=== PATIENT | female | born 1995 | race Caucasian/White ===

== ENCOUNTER 2023-07-22 10:53 | Emergency (ER) | payer SELFPAY ==
[2023-07-22 10:54] VITALS: BP 128/71; PULSE 84; RESP 17; TEMP 36.3; O2SAT 99; BMI 34.4
--- NOTE | 2023-07-22 11:26 | CT_ITS ---
STUDY: CT ABDOMEN AND PELVIS WITHOUT CONTRAST REASON FOR EXAM: Female, 27 years old. Two-week history of right flank pain. RADIATION DOSAGE (If Supplied By Facility): CTDIvol = ( 12.33 ) mGy, DLP = ( 613.24 ) mGycm TECHNIQUE: Transaxial images were obtained from the dome of the diaphragm to the symphysis pubis without oral contrast, and without intravenous contrast. Sagittal and coronal images were reconstructed. Individualized dose optimization techniques were used for this CT. COMPARISON: None. FINDINGS: The visualized lung bases are unremarkable. The visualized portions of the heart are within normal limits. Normal liver. Normal gallbladder and extrahepatic biliary system. Normal spleen. Normal pancreas. Normal bilateral adrenal glands. There is a 3.7 mm nonobstructive calculus in the midpole calyx of the right kidney. A 3.5 mm nonobstructive calculus is seen in the posterior lower pole calyx of the right kidney. Mild degree of right hydronephrosis and right hydroureter due to a 3.5 mm calculus in the midportion of the right ureter. Mild degree of periureteric stranding. Normal left kidney. Normal visualized stomach. Normal small intestine. Moderate degree of fecal material is seen in the rectosigmoid colon. The appendix is visualized and appears normal. Normal abdominal aorta. Normal inferior vena cava. Normal retroperitoneum. Normal urinary bladder. Follicles are seen in both ovaries. Normal abdominal wall. Normal osseous structures. CT/Abdomen/Pelvis without Cont IMPRESSION: 3.5 mm calculus in the midportion of the right ureter causing right hydronephrosis and right hydroureter. Nonobstructive right intrarenal calculus. Electronically Signed: Freedom Bales MD at 12:44 EDT ,
[2023-07-22 11:34] LABS: Absolute Lymphocyte Count 1.41 X10^3/uL (0.83-4.51); Absolute Neutrophil Count 2.7 X10^3/uL (2.0-7.7); Basophil# 0.05 X10^3/uL; Basophil% 1.1 % (0-1); Eosinophil# 0.05 X10^3/uL; Eosinophils% 1.1 % (0-5); Hematocrit 42.1 % (37-47); Hemoglobin 13.2 g/dL (12.0-15.0); Lymphocyte # 1.41 X10^3/ul (0.83-4.51); Lymphocyte % 30.4 % (19-41); Mean Corp Hgb Conc 31.4 g/dL (32-36); Mean Corpuscular Hgb 27.6 pg (27.0-32.0); Mean Corpuscular Volume 88.1 fL (81-99); Mean Platelet Vol. 10.4 fl (6.2-12.0); Monocyte# 0.39 X10^3/uL; Monocyte% 8.4 % (0-10); NRBC Flagged by Analyzer 0 % (0-5); Neutrophil # 2.73 X10^3/uL (2.7-7.7); Neutrophil % 58.8 % (47-70); Platelet Count 326 K/mm3 (150-450); RBC Distribution Width CV 12.6 % (11.6-14.6); RBC Distribution Width SD 40.7 fl (35.1-43.9); Red Blood Count 4.78 M/mm3 (4.2-5.4); White Blood Count 4.6 K/mm3 (4.4-11.0)
[2023-07-22 11:40] LABS: Internal QC Validated? YES +Cl - CLEAR BKGD; Pregnancy, Serum, hCG Quali. NEGATIVE Negative
[2023-07-22 11:44] LABS: Anion Gap 6 (5-15); BUN 11 mg/dL (7-18); BUN/Creat Ratio 14.9 RATIO (10-20); Calcium,Total 9.3 mg/dL (8.5-10.1); Chloride 104 mmol/L (98-107); Creatinine, Serum 0.74 mg/dL (0.55-1.02); EST Glomerular Filtration Rate 100 mL/min (>60); Est Glom Filt Rate - Afr Amer 121 mL/min (>60); Estimated Creatinine Clearance 111.43 ml/min; Glucose 104 mg/dL (74-106); Potassium 4.1 mmol/L (3.5-5.1); Sodium Level 137 mmol/L (136-145)
[2023-07-22 11:59] LABS: Mucous, Urine 0 SEEN /hpf (<or=2+)
[2023-07-22 12:01] LABS: Color, Urine Yellow (Yellow); Glucose, Dipstick Normal (Normal); Ketone-Dipstick Negative (Negative); Leukocyte Esterase-Dipstick 100 /ul (Negative); Nitrite-Dipstick Negative (Negative); Occult Blood-Urine 150 /ul (Negative); Protein-Dipstick 15 mg/dl (Negative); Specific Gravity, Urine 1.005 (1.002-1.030); Urine Bilirubin Dipstick Negative (Negative); Urine Clarity Sl. Cloudy (Clear); Urine Urobilinogen Normal (Normal)
[2023-07-22 12:09] LABS: Bacteria 1+ /hpf (None Seen); Red Blood Cells-Urine 0-5 SEEN /hpf (0-5); Squamous Epithelial Cells - UA 5-10 SEEN /hpf (5-10); White Blood Cells 0-5 SEEN /hpf (0-5)
--- NOTE | 2023-07-22 12:40 | EX.ED.DYSGE1 ---
HPI History of Present Illness Chief Complaint: Flank Pain Informant: patient Narrative Narrative: Presents persistent pain right flank. History of kidney stones have always passed them. Last time a couple years ago. 2 weeks ago noted flank pain she went to [facility] with her history no imagings. She had labs and urine that was negative. She was placed on Flomax and ibuprofen. She did not start the Flomax. States noted this pain moving to the side and burning sensation down the lower she went to urgent care 4 days ago had a pelvic workup with density screening that she looked up and was negative. Urine still had blood. She denies dysuria. Today increasing pain however took 1 g of Tylenol prior to arrival which subsided the symptoms. Prior similar symptoms: Yes PFSH PFSH Home Medications ?Medication ?Instructions ?Recorded ?Last Taken ?Type NK 07/22/23 Unknown History ibuprofen 600 mg tablet 600 mg PO Q6H PRN PRN pain #20 07/22/23 Unknown Rx TABLETS ondansetron 4 mg disintegrating 4 mg PO Q8H PRN PRN Nausea #10 tabs 07/22/23 Unknown Rx tablet oxycodone-acetaminophen 5 mg-325 1 tab PO Q6H PRN PRN Pain 3 days 07/22/23 Unknown Rx mg tablet #12 TABLETS tamsulosin 0.4 mg capsule 0.4 mg PO DAILY #7 CAPSULES 07/22/23 Unknown Rx Allergy/AdvReac Type Severity Reaction Status Date / Time Penicillins (PCN) Allergy Intermediate Hives Verified 07/22/23 10:55 Social History Smoking Status: Never smoker ROS ROS ED Constitutional Constitutional ED: Denies chills, fever(s) or sweats Eyes Eyes: Denies change in vision ENT ENT ED: Denies dysphagia or sore throat Cardiovascular Cardiovascular: Denies chest pain, leg edema, palpitations or racing heartbeat Respiratory/Chest Respiratory/Chest: Denies cough, dyspnea or dyspnea on exertion Gastrointestinal Gastrointestinal: Reports abdominal pain; Denies diarrhea, nausea or vomiting Genitourinary Genitourinary ED: Denies dysuria, hematuria or urinary frequency Musculoskeletal Musculoskeletal: Reports back pain; Denies extremity pain or neck pain Integumentary Denies rash or wounds Neurologic Neurologic: Denies headache(s), paresthesias or weakness EXAM Physical Exam Const Vital Signs: 07/22/23 10:54 07/22/23 13:20 07/22/23 14:05 Temperature 97.3 F L 97.3 F L Temperature Source Temporal Pulse Rate 84 72 64 Respiratory Rate 17 14 14 Blood Pressure 128/71 H 125/81 H 121/67 H Blood Pressure Mean 90 95 85 Pulse Ox 99 99 99 Oxygen Delivery Method Room Air Positive well nourished and well developed General Appearance ED: well developed and NAD HEENT Reports moist mucous membranes normocephalic and atraumatic Eyes EOMs intact bilaterally and conjunctivae normal General Eye ED: Yes normal appearance of both eyes Neck no lymphadenopathy and supple General: Negative for tenderness Chest Wall Chest: Negative for tenderness Resp normal respiratory effort and normal air movement Effort and Inspection: symmetric chest movement; Negative for respiratory distress Cardio regular rate, regular rhythm and no murmurs Peripheral Pulses: pulses 2+ throughout GI normal to inspection, nondistended, normoactive bowel sounds and non-tender Palpation: Negative for guarding or rebound tenderness present Back/Spine no CVA tenderness and no thoracic nor lumbar tenderness Extremity normal to inspection General Extremety ED: Negative for edema or tenderness General Extremity: Negative for edema Neuro oriented x3 and no sensory deficits noted Sensorium / Orientation: awake and alert Skin no rashes or lesions noted and no wounds MDM MDM MDM Narrative Medical decision making narrative: Interventions / MDM: Differential diagnosis: Kidney stone, renal colic Diagnosis considered but do not suspect: N/A My EKG interpretation: N/A Imaging independently reviewed and interpreted by myself: CT abdomen pelvis: Obstructive right kidney stone 3.5 mm mid ureter with hydro-. External documents reviewed: N/A Test considered but not ordered:N/A ED course: Patient declines any pain medicines has on and off symptoms for the last 2 weeks with history of kidney stones. Will recheck labs urine CT scan will be ordered for further evaluation. Lab stable urine with only 100 leukocytes 1+ bacteria. Negative nitrites and white cells. Urine culture sent. She is asymptomatic. CT scan confirms an obstructive stone at 3.5 mm. Pain remained controlled without any additional medicines. Her prescription back home up in [place] of ibuprofen and Flomax. She is written for these medicines along with Zofran and Percocets to use as needed. She is given follow-up with your local urologist here, return precautions discussed. All questions were answered. Re-evaluation: stable Disposition discussed with patient/family/significant other: Patient Case discussed with consulting clinician: N/A This note was generated with [employer] dictation software. It may contain incorrect words, spelling, and punctuation that were not noted in checking the note before signing. Lab Data Attestation: I reviewed the patient's lab results. Labs: Laboratory Results - last 24 hr 07/22/23 07/22/23 11:10 11:55 WBC 4.6 RBC 4.78 Hgb 13.2 Hct 42.1 MCV 88.1 MCH 27.6 MCHC 31.4 L RDW Std Deviation 40.7 RDW Coeff of Elfego 12.6 Plt Count 326 MPV 10.4 Immature Gran % (Auto) 0.200 Neut % (Auto) 58.8 Lymph % (Auto) 30.4 [place] % (Auto) 8.4 Eos % (Auto) 1.1 Baso % (Auto) 1.1 H Absolute Neuts (auto) 2.7 Absolute Lymphs (auto) 1.41 Nucleated RBC % 0 Sodium 137 Potassium 4.1 Chloride 104 Carbon Dioxide 27.0 Anion Gap 6 BUN 11 Creatinine 0.74 Estim Creat Clear Calc 111.43 Est GFR (MDRD) Af Amer 121 Est GFR (MDRD) Non-Af 100 BUN/Creatinine Ratio 14.9 Glucose 104 Calcium 9.3 Serum , Qual NEGATIVE Urine Color Yellow Urine Clarity Sl. Cloudy Urine pH 7.0 Ur Specific [place] 1.005 Urine Protein 15 H Urine Glucose (UA) Normal Urine Ketones Negative Urine Occult Blood 150 H Urine Nitrite Negative Urine Bilirubin Negative Urine Urobilinogen Normal Ur Leukocyte Esterase 100 H Urine RBC 0-5 SEEN Urine WBC 0-5 SEEN Ur Squamous Epith Cells 5-10 SEEN Urine Bacteria 1+ Urine Mucus 0 SEEN Radiography Diagnostic Testing: Clinical Impression(s) from Imaging Studies Abdomen/Pelvis CT 07/22/23 11:26 IMPRESSION: 3.5 mm calculus in the midportion of the right ureter causing right hydronephrosis and right hydroureter. Nonobstructive right intrarenal calculus. Electronically Signed: Freedom Bales MD at 12:44 EDT , Discharge Plan Triage Chief Complaint: Flank Pain ED Provider: Robert Pineda Dx/Rx/DC Orders Clinical Impression: Urolithiasis, Renal colic on right side Instructions: ED Kidney Stone with Pain Prescriptions: New oxycodone-acetaminophen 5-325 mg tablet 1 tab PO Q6H PRN PRN (Reason: Pain) 3 Days Qty: 12 0RF tamsulosin 0.4 mg capsule 0.4 mg PO DAILY Qty: 7 0RF ibuprofen 600 mg tablet 600 mg PO Q6H PRN PRN (Reason: pain) Qty: 20 0RF ondansetron 4 mg tablet,disintegrating 4 mg PO Q8H PRN PRN (Reason: Nausea) Qty: 10 0RF No Action NK Primary Care Provider: Care Physician,No Primary Referrals: Eugene Sanchez MD [Med Staff - Active Staff] - 3-5 Days Care Physician,No Primary [Primary Care Provider] - Activity Restrictions/Additional Instructions: 3.5 mm stone mid right ureter. Blood work stable. Urine culture sent, you will be contacted if any positive finding that needs treatment. Take pain medicines and Flomax as prescribed. If you develop worsening symptoms fevers pain not controlled medications, return to the ED for reevaluation. Follow-up with Dr. Sanchez. Print Language: Honduran Disposition Disposition: Home, Self Care Discharge Date/Time: 07/22/23 14:06
[2023-07-22 13:20] VITALS: BP 125/81; PULSE 72; RESP 14; O2SAT 99
[2023-07-22 14:05] VITALS: BP 121/67; PULSE 64; RESP 14; TEMP 36.3; O2SAT 99
== END 2023-07-22 14:06 | disposition home or self-care (01) ==
PROVIDERS: Emergency Provider Emergency Medicine; Visit Provider Emergency Medicine
DX: N13.2 Hydronephrosis with renal and ureteral calculous obstruction (principal); N13.4 Hydroureter; N23 Unspecified renal colic
CPT/HCPCS: 74176; 80048; 81001; 84703; 85025; 87086; 87088; 99283

== ENCOUNTER 2023-08-16 16:21 | Emergency (ER) | payer SELFPAY ==
[2023-08-16 16:22] VITALS: BP 131/77; PULSE 72; RESP 18; TEMP 36.1; O2SAT 99; BMI 34.1
--- NOTE | 2023-08-16 18:07 | CT_ITS ---
STUDY: CT ABDOMEN AND PELVIS WITHOUT CONTRAST REASON FOR EXAM: Female, 27 years old. Pain RADIATION DOSAGE (If Supplied By Facility): CTDIvol = ( 10.67 ) mGy, DLP = ( 546.71 ) mGycm TECHNIQUE: Transaxial images were obtained from the dome of the diaphragm to the symphysis pubis without oral contrast, and without intravenous contrast. Sagittal and coronal images were reconstructed. Individualized dose optimization techniques were used for this CT. COMPARISON: None. FINDINGS: The visualized lung bases are unremarkable. The visualized portions of the heart are within normal limits. Normal liver. Normal gallbladder and extrahepatic biliary system. Normal spleen. Normal pancreas. Normal bilateral adrenal glands. [id number] right hydronephrosis slightly worse than prior study. Previously seen 6 mm ureteral stone has migrated to the distal right ureter, seen on coronal image 65 and axial image 151. Additional stable nonobstructing stones of the mid and lower right kidney. Normal left kidney. Normal visualized stomach. Normal small intestine. Normal colon. The appendix is visualized and appears normal. Normal abdominal aorta. Normal inferior vena cava. Normal retroperitoneum. Normal urinary bladder. Normal visualized uterus. Normal abdominal wall. Normal osseous structures. CT/Abdomen/Pelvis without Cont IMPRESSION: Previously seen 6 mm right ureteral stone has migrated caudal and is now in the distal right ureter just proximal to the UVJ. Mild interval worsening of right hydronephrosis. No other definite acute or significant abnormality seen. Electronically Signed: Jorje Perry MD at 19:11 EDT ,
--- NOTE | 2023-08-16 18:08 | EDS_ITS ---
HPI HPI - Female History of Present Illness Chief Complaint: Flank Pain Detail of Chief Complaint: Right flank pain. History of kidney stones. Informant: patient Bleeding Issue: Negative for Vaginal bleeding Associated Symptoms Associated Symptoms: Negative for Dysuria, Frequency or Urgency Narrative Narrative: 27-year-old female history of 3-4 prior kidney stones. All passed without any surgery. Was diagnosed with a kidney stone on July 21 here. Had been doing well. Had some mild intermittent flank pain and worse pain today. No dysuria. No fever. Today has had nausea and vomiting since the pain. She was taking oxycodone and took 1 today. She is out of her Flomax. She is never had any abdominal surgeries. She denies any fever. Prior similar symptoms: Yes Recent Illness/Hospitalization: No PFSH PFSH Home Medications ?Medication ?Instructions ?Recorded ?Last Taken ?Type NK 07/22/23 Unknown History ibuprofen 600 mg tablet 600 mg PO Q6H PRN PRN pain #20 07/22/23 Unknown Rx TABLETS ondansetron 4 mg disintegrating 4 mg PO Q8H PRN PRN Nausea #10 tabs 07/22/23 Unknown Rx tablet oxycodone-acetaminophen 5 mg-325 1 tab PO Q6H PRN PRN Pain 3 days 07/22/23 Unknown Rx mg tablet #12 TABLETS tamsulosin 0.4 mg capsule 0.4 mg PO DAILY #7 CAPSULES 07/22/23 Unknown Rx Allergy/AdvReac Type Severity Reaction Status Date / Time Penicillins (PCN) Allergy Intermediate Hives Verified 08/16/23 16:22 Social History Smoking Status: Never smoker ROS ROS ED ROS Narrative Right flank pain. Nausea vomiting. Review of Systems ROS Unobtainable: Denies due to encephalopathy Constitutional Constitutional ED: Denies chills or fever(s) Eyes Eyes: Denies blurry vision ENT ENT ED: Denies ear pain Cardiovascular Cardiovascular: Denies chest pain Respiratory/Chest Respiratory/Chest: Denies cough or dyspnea Gastrointestinal Gastrointestinal: Reports abdominal pain, nausea and vomiting; Denies constipation, diarrhea or melena Genitourinary Genitourinary ED: Denies dysuria or hematuria Musculoskeletal Musculoskeletal: Denies arthralgias or myalgias Integumentary Denies abscess Neurologic Neurologic: Denies headache(s) Psychiatric Psychiatric: Denies anxiety or depression Endocrine Endocrinology: Denies heat intolerance Hematologic/Lymphatic Hematologic/Lymphatic: Denies easy bleeding, easy bruising or lymphadenopathy Allergic/Immunologic Allergic/Immunologic ED: Denies mouth swelling, tongue swelling or urticaria EXAM Physical Exam Narrative Exam Narrative: 27 female. Vital signs stable afebrile. H EENT exam unremarkable. Neck nontender. Lungs clear. Heart regular rhythm rate about 70 no murmur. Chest wall and ribs nontender. Abdomen soft nontender. No peritoneal signs. Right upper or right lower quadrant unremarkable. Back no reproducible pain. Moving all 4 extremities. Neurologically she is awake alert. No focal motor deficits. Const Vital Signs: 08/16/23 16:22 08/16/23 18:21 08/16/23 20:00 Temperature 97 F L Temperature Source Temporal Pulse Rate 72 62 65 Respiratory Rate 18 18 18 Blood Pressure 131/77 H 115/59 L 120/71 Blood Pressure Mean 95 77 87 Pulse Ox 99 96 99 Oxygen Delivery Method Room Air Room Air Room Air Positive well nourished and well developed; Negative for cachectic, contractures or unkempt General Appearance ED: well developed and NAD; Negative for unkempt, cachectic, contractures or pallor Nutritional Appearance: Negative for cachectic HEENT Reports moist mucous membranes Negative for trauma or tenderness Eyes PERRL and EOMs intact bilaterally General Eye ED: Negative for pale conjunctiva or scleral icterus Neck no lymphadenopathy, supple and no JVD General: Negative for other Thyroid: Negative for tender Lymph Lymphatic: Negative for other Chest Wall inspection of chest normal and palpation of chest normal Resp normal respiratory effort and clear to auscultation bilaterally Effort and Inspection: Negative for pain with movement Auscultation: Negative for rales, rhonchi, wheezes or diminished lung sounds Cardio regular rate, regular rhythm, S1 normal heart sound and no JVD Rate: Negative for bradycardia, tachycardic or other Rhythm: Negative for abnormal rhythm GI normal to inspection, nondistended, normoactive bowel sounds, soft to palpation, non-tender, non-distended and no masses Auscultation: normoactive bowel sounds Palpation: Negative for tender, guarding, rigid, hepatomegaly, splenomegaly, mass or other Back/Spine no CVA tenderness General Back: Negative for CVA tenderness Cervical Spine: Negative for cervical spine tenderness Thoracic Spine / Upper Back: Negative for thoracic spinal tenderness Lumbar Spine / Lower Back: Negative for lumbar spinal tenderness Extremity normal to inspection and full ROM General Extremety ED: Negative for edema General Extremity: Negative for edema Neuro oriented x3 and CN's II-XII intact bilaterally Sensorium / Orientation: alert, oriented to person, oriented to place and oriented to time; Negative for confused, lethargic or stuporous Motor Exam: strength 5/5 throughout Psych mental status grossly normal Appearance: Negative for unkempt Attitude: No agitated Speech: No other Mood & Affect: Negative for depressed, anxious or tearful Skin no rashes or lesions noted and no wounds General Skin Exam: Negative for jaundice or pallor Rashes: No rashes noted Trauma: Negative for other MDM MDM MDM Narrative Medical decision making narrative: 27-year-old female history of kidney stones diagnosed about a month ago on July 21. 3 and half millimeter proximal right ureteral stone. Having recurrent flank pain today. She had gotten better and now is having pain again this may be a different stone. CAT scan and labs are pending. Morphine and Zofran for pain and nausea. Labs basically unremarkable. No urinary tract infection. Prior CT read the stone is 3.5 mm. The same stone is now distal near the right UVJ but there read in the 6 mm. There is hydronephrosis. Patient was feeling better after the morphine. She will now be given Toradol. Patient is comfortable being discharged home. Outpatient follow-up as needed. She has ibuprofen, Percocet and Zofran at home. I will give her additional Flomax prescription. She was given names of both local urologist for follow-up as needed. Urine strainer ago . History & Record Review Discussion w/independent historian: Patient Additional record(s) reviewed:: Prior inpatient record, Prior outpatient record, Prior ED visit and Prior labs Lab Data Attestation: I reviewed the patient's lab results. Lab results narrative: CBC unremarkable. White count 11. H&H 12 and 38. Platelets 303. Electrolytes unremarkable gap 10. BUN/creatinine 15 and 1. Glucose 112. Serum test negative. UA greater than 100 red cells. No white cells nor bacteria. No nitrates. Labs: Laboratory Results - last 24 hr 08/16/23 08/16/23 18:00 19:43 WBC 11.0 RBC 4.54 Hgb 12.6 Hct 38.6 MCV 85.0 MCH 27.8 MCHC 32.6 RDW Std Deviation 39.8 RDW Coeff of Elfego 12.9 Plt Count 303 MPV 10.3 Immature Gran % (Auto) 0.400 Neut % (Auto) 87.7 H Lymph % (Auto) 6.8 L [place] % (Auto) 4.8 Eos % (Auto) 0.0 Baso % (Auto) 0.3 Absolute Neuts (auto) 9.6 H Absolute Lymphs (auto) 0.74 L Nucleated RBC % 0 Sodium 139 Potassium 3.7 Chloride 105 Carbon Dioxide 24.0 Anion Gap 10 BUN 15 Creatinine 1.06 H Estim Creat Clear Calc 77.32 Est GFR (MDRD) Af Amer 79 Est GFR (MDRD) Non-Af 66 BUN/Creatinine Ratio 14.2 Glucose 112 H Calcium 9.3 Serum , Qual NEGATIVE Urine Color Yellow Urine Clarity Cloudy Urine pH 7.0 Ur Specific [place] 1.010 Urine Protein 100 H Urine Glucose (UA) Normal Urine Ketones 150 A* Urine Occult Blood 250 H Urine Nitrite Negative Urine Bilirubin Negative Urine Urobilinogen 1 H Ur Leukocyte Esterase 25 H Urine RBC > 100 SEEN Urine WBC 0 SEEN Ur Squamous Epith Cells 0-5 SEEN Urine Bacteria 0 SEEN Urine Mucus 0 SEEN Radiography Diagnostic Testing: Clinical Impression(s) from Imaging Studies Abdomen/Pelvis CT 08/16/23 18:07 IMPRESSION: Previously seen 6 mm right ureteral stone has migrated caudal and is now in the distal right ureter just proximal to the UVJ. Mild interval worsening of right hydronephrosis. No other definite acute or significant abnormality seen. Electronically Signed: Jorje Perry MD at 19:11 EDT , Discharge Plan Triage Chief Complaint: Flank Pain ED Provider: John Caban Dx/Rx/DC Orders Prescriptions: No Action NK oxycodone-acetaminophen 5-325 mg tablet 1 tab PO Q6H PRN PRN (Reason: Pain) 3 Days Qty: 12 0RF tamsulosin 0.4 mg capsule 0.4 mg PO DAILY Qty: 7 0RF ibuprofen 600 mg tablet 600 mg PO Q6H PRN PRN (Reason: pain) Qty: 20 0RF ondansetron 4 mg tablet,disintegrating 4 mg PO Q8H PRN PRN (Reason: Nausea) Qty: 10 0RF Primary Care Provider: Care Physician,No Primary Referrals: Care Physician,No Primary [Primary Care Provider] - Print Language: Greek
[2023-08-16] MEDS: morphine 8 MG/ML Syringe 6 MG IV (18:12)
[2023-08-16] MEDS: Ondansetron 4 MG/2 ML Vial IV (18:12)
[2023-08-16 18:18] LABS: Absolute Lymphocyte Count 0.74 X10^3/uL (0.83-4.51); Absolute Neutrophil Count 9.6 X10^3/uL (2.0-7.7); Basophil# 0.03 X10^3/uL; Basophil% 0.3 % (0-1); Hematocrit 38.6 % (37-47); Hemoglobin 12.6 g/dL (12.0-15.0); Lymphocyte # 0.74 X10^3/ul (0.83-4.51); Lymphocyte % 6.8 % (19-41); Mean Corp Hgb Conc 32.6 g/dL (32-36); Mean Corpuscular Hgb 27.8 pg (27.0-32.0); Mean Platelet Vol. 10.3 fl (6.2-12.0); Monocyte# 0.53 X10^3/uL; Monocyte% 4.8 % (0-10); NRBC Flagged by Analyzer 0 % (0-5); Neutrophil # 9.61 X10^3/uL (2.7-7.7); Neutrophil % 87.7 % (47-70); Platelet Count 303 K/mm3 (150-450); RBC Distribution Width CV 12.9 % (11.6-14.6); RBC Distribution Width SD 39.8 fl (35.1-43.9); Red Blood Count 4.54 M/mm3 (4.2-5.4)
[2023-08-16 18:21] VITALS: BP 115/59; PULSE 62; RESP 18; O2SAT 96
[2023-08-16 18:38] LABS: Internal QC Validated? YES +Cl - CLEAR BKGD; Pregnancy, Serum, hCG Quali. NEGATIVE Negative; Record Kit Lot#, Serum Preg. 772476
[2023-08-16 18:41] LABS: Anion Gap 10 (5-15); BUN 15 mg/dL (7-18); BUN/Creat Ratio 14.2 RATIO (10-20); Calcium,Total 9.3 mg/dL (8.5-10.1); Chloride 105 mmol/L (98-107); Creatinine, Serum 1.06 mg/dL (0.55-1.02); EST Glomerular Filtration Rate 66 mL/min (>60); Est Glom Filt Rate - Afr Amer 79 mL/min (>60); Estimated Creatinine Clearance 77.32 ml/min; Glucose 112 mg/dL (74-106); Potassium 3.7 mmol/L (3.5-5.1); Sodium Level 139 mmol/L (136-145)
[2023-08-16 19:49] LABS: Bacteria 0 SEEN /hpf (None Seen); Mucous, Urine 0 SEEN /hpf (<or=2+); White Blood Cells 0 SEEN /hpf (0-5)
[2023-08-16 19:57] LABS: Glucose, Dipstick Normal (Normal); Leukocyte Esterase-Dipstick 25 /ul (Negative); Nitrite-Dipstick Negative (Negative); Occult Blood-Urine 250 /ul (Negative); Protein-Dipstick 100 mg/dl (Negative); Urine Bilirubin Dipstick Negative (Negative); Urine Clarity Cloudy (Clear); Urine Urobilinogen 1 mg/dl (Normal)
[2023-08-16 20:00] VITALS: BP 120/71; PULSE 65; RESP 18; O2SAT 99
[2023-08-16 20:17] LABS: Ketone-Dipstick 150 mg/dl (Negative)
[2023-08-16 20:18] LABS: Color, Urine Yellow (Yellow)
[2023-08-16 20:19] LABS: Red Blood Cells-Urine > 100 SEEN /hpf (0-5); Squamous Epithelial Cells - UA 0-5 SEEN /hpf (5-10)
[2023-08-16] MEDS: Ketorolac 30 MG/ML Syringe IV (20:25)
[2023-08-16 20:28] VITALS: BP 122/74; PULSE 62; RESP 16; TEMP 36.4; O2SAT 98
== END 2023-08-16 20:43 | disposition home or self-care (01) ==
PROVIDERS: Emergency Provider Emergency Medicine; Visit Provider Emergency Medicine
DX: R10.9 Unspecified abdominal pain (principal); N13.2 Hydronephrosis with renal and ureteral calculous obstruction
CPT/HCPCS: 74176; 80048; 81001; 84703; 85025; 96374; 96375; 96376; 99284; A4216; J2405